=== PATIENT | male | born 1980 | race Hispanic/Latino ===

== ENCOUNTER 2022-07-08 21:55 | Emergency (ER) | payer OTHER ==
[~2022-07-08] VITALS: Ht 172.7 cm; Wt 81.2 kg
[2022-07-08] MEDS ORDERED: IBUPROFEN 600 MG TAB PO STA (22:51)
[2022-07-08] MEDS ORDERED: HYDROCODONE/APAP 5MG-325MG TAB PO ONE (23:00)
[2022-07-08] MEDS ORDERED: AMOXICILLIN/CLAVULANATE K 875 MG TAB PO STA (23:07)
[2022-07-08] MEDS ORDERED: AMOXICILLIN/CLAVULANATE K 875 MG TAB ONE (23:14)
[2022-07-08] MEDS ORDERED: LIDOCAINE 1% 10 ML MULTIDOSE VIAL IJ ONE (23:15)
[2022-07-08] MEDS ORDERED: LIDOCAINE HCL 1% LOCAL INJ 20 ML VIAL ONE (23:15)
[2022-07-09] MEDS ORDERED: AMOX TR-K CLV1 EAC2 PO (01:34)
== END 2022-07-09 01:48 | disposition home or self-care (01) ==
LOC: FSED 22:25
DX: S51.852A Open bite of left forearm, initial encounter (principal); W54.0XXA Bitten by dog, initial encounter; Y92.89 Other specified places as the place of occurrence of the external cause
CPT/HCPCS: 12004; 99283; J2001

== ENCOUNTER 2022-07-14 19:00 | Emergency (ER) | payer SELFPAY ==
[~2022-07-14] VITALS: Ht 172.7 cm; Wt 81.2 kg
[~2022-07-14 19:00] MED LIST: AMOX TR-K CLV1 EAC2 PO
== END 2022-07-14 20:10 | disposition left against medical advice (07) ==
LOC: FSED 19:10
DX: Z48.01 Encounter for change or removal of surgical wound dressing (principal)

== ENCOUNTER 2022-07-19 08:58 | Emergency (ER) | payer SELFPAY ==
[~2022-07-19] VITALS: Ht 157.5 cm; Wt 72.6 kg
[2022-07-19] MEDS ORDERED: AUGMENTIN XR 11 EACH PO (10:04)
[2022-07-19] MEDS ORDERED: BACITRACIN15 GM TOP (10:06)
[2022-07-19] MEDS ORDERED: BACITRACIN ZINC 15 GM OINT TOP SCH (17:00)
== END 2022-07-19 10:17 | disposition home or self-care (01) ==
LOC: FSED 09:23
DX: Z48.02 Encounter for removal of sutures (principal); I10 Essential (primary) hypertension
CPT/HCPCS: 99283; S0630